=== PATIENT | female | born 1955 | race Caucasian/White ===

== ENCOUNTER 2023-10-02 17:45 | Emergency (ER) | payer OTHER ==
[2023-10-02 18:08] VITALS: BP 154/84; TEMP 98.1; BMI 22.4
[2023-10-02] MEDS ORDERED: ALBUTEROL SO4 2.5/IPRATROPIUM 0.5 INH SOL 3 ML VIAL.NEB. NEB ONE ×2 (19:50→19:53)
[2023-10-02] MEDS ORDERED: predniSONE 20 MG TABLET (UD) PO ONE (19:51)
[2023-10-02] MEDS ORDERED: predniSONE 20 MG TABLET (UD) ONE (19:53)
[2023-10-02] MEDS ORDERED: AZITHROMYCIN 500 MG TABLET ONE (20:41)
[2023-10-02] MEDS ORDERED: AZITHROMYCIN 500 MG TABLET PO ONE (20:47)
[2023-10-02 20:53] VITALS: PULSE 82; RESP 18
== END 2023-10-02 21:14 | disposition home or self-care (01) ==
LOC: FER 17:45
PROC: 3E0F7GC Introduction of Other Therapeutic Substance into Respiratory Tract, Via Natural or Artificial Opening (ICD-10-PCS; principal; 2023-10-02)
DX: R09.81 Nasal congestion (principal); R50.9 Fever, unspecified; R51.9 Headache, unspecified; J06.9 Acute upper respiratory infection, unspecified; J01.90 Acute sinusitis, unspecified; B97.89 Other viral agents as the cause of diseases classified elsewhere; R10.9 Unspecified abdominal pain; R06.2 Wheezing; Z20.822 Contact with and (suspected) exposure to COVID-19
CPT/HCPCS: 0241U-QW; 71045-TC-FY; 99284-25